=== PATIENT | female | born 1955 | race Caucasian/White ===

== ENCOUNTER → 2018-01-24 | Outpatient (CLI) | payer OTHER ==
--- NOTE | 2018-01-24 13:11 | BD ---
EXAMINATION TYPE: Axial Bone Density DATE OF EXAM: 01/24/2018 COMPARISON: 09/28/2012 CLINICAL HISTORY: Post menopausal female. Osteoporosis screening. Height: 64 IN Weight: 149 LBS FRAX RISK QUESTIONS: History of Fracture in Adulthood: RT FOOT FX AGE 60 Secondary Osteoporosis: 3. Menopause before 45: YES AGE 35 TOTAL HYSTERECTOMY Rheumatoid Arthritis: YES RISK FACTORS HISTORY OF: History of Wrist Fracture: YES RT When: AGE 44 Surgery to Wrist (right): YES When: AGE 44 Active: YES Postmenopausal woman: AGE 35 Take estrogen and/or progesterone medications: NOT NOW How long: AGE 35 - 49 MEDICATIONS: Osteoporosis Medications: NOT NOW Which medication: RECLAST How Lon - 2015 Additional Medications: CALCIUM, VIT D, EXAM MEASUREMENTS: Bone mineral densitometry was performed using the [employer] System. Bone mineral density as measured about the Lumbar spine is: ----- L1-L4(G/cm2): 0.860 T Score Values are as follows: ----- L2: -3.4 ----- L3: -2.7 ----- L4: -2.5 ----- L1-L4: -2.7 Bone mineral density has: Increased 4.5% since study of: 09/28/2012 Bone mineral density about the R hip (g/cm2): 0.575 Bone mineral density about the L hip (g/cm2): 0.591 T Score values are as follows: -----R Neck: -3.3 -----L Neck: -3.2 -----R Total: -3.0 -----L Total: -2.7 Bone mineral density has: Increased 10.6% since study of: 09/28/2012 IMPRESSION: Osteoporosis (T Score less than -2.5). There is increased fracture risk and therapy is usually indicated based on age. Re-Screen 1-2 years. NOTE: T-SCORE=SD OF THE YOUNG ADULT MEAN.
== END | disposition home or self-care (01) ==
LOC: RADBDWWP 07:25
PROVIDERS: ATTEND Internal Medicine Rheumatology
DX: M81.0 Age-related osteoporosis without current pathological fracture (principal)
CPT/HCPCS: 77080